=== PATIENT | female | born 1935 | race Caucasian/White ===

== ENCOUNTER 2017-03-18 18:18 | Emergency (ER) | payer MEDICARE, MEDICAID ==
[~2017-03-18] VITALS: Ht 172.7 cm; Wt 60.9 kg
[2017-03-18] MEDS ORDERED: SIMV40TA2 (18:34)
[2017-03-18] MEDS ORDERED: CHLO125TA (18:34)
--- NOTE | 2017-03-18 19:10 | REPUSA ---
CT of the head Clinical history: injury. Protocol: Multiple axial CT images obtained with 5 mm slice thickness were obtained through the head without administration of contrast. Findings: The ventricles and sulci are symmetric bilaterally. There are periventricular areas of low attenuation throughout the deep white matter. There is no evidence of acute hemorrhage or infarct. Th ere is no midline shift, mass effect, or extra-axial fluid collection. The osseous structures are unr emarkable. The visualized paranasal sinuses and mastoid air cells are clear. Impression: No acute hemorrhage or infarct. 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
[2017-03-18 19:34] VITALS: BP 159/84
== END 2017-03-18 19:40 | disposition home or self-care (01) ==
LOC: M ED 18:18
DX: S01.01XA Laceration without foreign body of scalp, initial encounter (principal); W19.XXXA Unspecified fall, initial encounter; Y92.099 Unspecified place in other non-institutional residence as the place of occurrence of the external cause; Y93.9 Activity, unspecified; Y99.9 Unspecified external cause status; I10 Essential (primary) hypertension; E78.00 Pure hypercholesterolemia, unspecified; Z79.899 Other long term (current) drug therapy

== ENCOUNTER 2017-04-06 15:55 | Emergency (ER) | payer MEDICAID, MEDICARE ==
[~2017-04-06] VITALS: Ht 175.3 cm; Wt 54.5 kg
[~2017-04-06 15:55] MED LIST: CHLO125TA; SIMV40TA2
[2017-04-06 16:51] LABS: BASO % 0.4 % (0.0-1.0); EOS % 0.4 % (0.0-3.0); LARGE UNSTAINED CELL # 0.1 K/mm3 (0.0-0.4); LARGE UNSTAINED CELL % 1.3 % (0.0-4.0); LYMPH # 1.5 K/mm3 (1.5-4.5); LYMPH % 14.3 % (24.0-44.0); MEAN CORPUSCULAR HGB CONC 34.6 g/dl (32.0-36.5); MEAN CORPUSCULAR VOLUME 89.5 fl (80.0-96.0); MONO # 0.5 K/mm3 (0.0-0.8); MONO % 4.9 % (0.0-5.0); NEUTROPHILS # 8.2 K/mm3 (1.8-7.7); NEUTROPHILS % 78.8 % (36.0-66.0); PLATELET COUNT, AUTOMATED 375 k/mm3 (150-450); RED CELL DISTRIBUTION WIDTH 12.2 % (11.5-14.5); WHITE BLOOD COUNT 10.4 K/mm3 (4.0-10.0)
[2017-04-06 16:56] LABS: INR 1.07
[2017-04-06 17:33] VITALS: BP 138/70
--- NOTE | 2017-04-06 17:40 | REPUSA ---
CLINICAL HISTORY: Right upper extremity edema COMMENTS: Real time sonography with duplex doppler of the right upper extremity was performed with attention to the major deep venous structures. The right internal jugular, cephalic, basilic, radial and ulnar veins all reveal complete lumen compr essibility without intraluminal thrombus. The right subclavian and axillary veins are also clear of t hrombus. There is normal spontaneous phasic flow and augmentation throughout the deep veins. IMPRESSION: No evidence of DVT in the right upper extremity. Thank you for your kind referral of this patient.
== END 2017-04-06 17:41 | disposition home or self-care (01) ==
LOC: M ED 15:55
DX: S63.501A Unspecified sprain of right wrist, initial encounter (principal); M79.89 Other specified soft tissue disorders; X58.XXXA Exposure to other specified factors, initial encounter; Y92.9 Unspecified place or not applicable; Y93.9 Activity, unspecified; Y99.9 Unspecified external cause status; E78.5 Hyperlipidemia, unspecified; K64.9 Unspecified hemorrhoids; Z79.899 Other long term (current) drug therapy; Z88.2 Allergy status to sulfonamides; Z88.0 Allergy status to penicillin; Z88.8 Allergy status to other drugs, medicaments and biological substances